=== PATIENT | male | born 1950 | race Hispanic/Latino ===

== ENCOUNTER 2018-10-08 16:07 | Inpatient (IN) | payer MEDICARE ==
[~2018-10-08] VITALS: Ht 162.6 cm; Wt 101.2 kg
--- OUTSIDE RECORDS SUMMARY | 2018-10-08 16:09 | XMS REPORT ---
Author Author Roberto Carlos Brown Organization [employer] Address Unknown Phone Unavailable Care Team Providers Care Registration Coordinator Name Role Phone Roberto Carlos Brown Unavailable Allergies, Adverse Reactions, Alerts Substance Reaction Event Type N.K.D.A. Info Not Available Non Drug Allergy Problems Problem Type Condition Code Onset Dates Condition Status Problem Presence of prosthetic heart valve Z95.2 Active Problem Non morbid obesity due to excess calories E66.09 Active Problem S/P AVR Z95.2 Active Problem History of bilateral carotid endarterectomy Z98.890 Active Assessment Non morbid obesity due to excess calories E66.09 Active Problem Type II or unspecified type diabetes mellitus with unspecified complication, not stated as uncontrolled E11.8 Active Problem Non-rheumatic mitral regurgitation I34.0 Active Problem Pure hypercholesterolemia E78.01 Active Problem History of bilateral carotid endarterectomy Z98.89 Active Problem Abnormal EKG R94.31 Active Problem CHEUNG (dyspnea on exertion) R06.09 Active Assessment Abnormal EKG R94.31 Active Assessment CHEUNG (dyspnea on exertion) R06.09 Active Assessment Pure hypercholesterolemia E78.01 Active Assessment Type II or unspecified type diabetes mellitus with unspecified complication, not stated as uncontrolled E11.8 Active Assessment Arteriosclerosis of both carotid arteries I65.23 Active Assessment S/P AVR Z95.2 Active Assessment Benign hypertensive heart disease without congestive heart failure I11.9 Active Problem Benign hypertensive heart disease without congestive heart failure I11.9 Active Assessment History of bilateral carotid endarterectomy Z98.89 Active Problem Arteriosclerosis of both carotid arteries I65.23 Active Medications Medication Code System Code Instructions Start Date End Date Status Dosage Atorvastatin Calcium [facility] 53379351589 40 MG Orally Once a day Active 1 tablet NovoLog [facility] 46596848797 100 UNIT/ML Subcutaneous 24 units in AM 28 at noon 34 in PM Active as directed Metoprolol Tartrate ND 27086576186 25 MG Orally once a day Active 1 tablet Aspirin EC Lo-Dose [facility] 08477170978 81 MG Orally Once a day Active 1 tablet Lisinopril-Hydrochlorothiazide [facility] 06695358687 20-25 MG Orally Once a day Active 1 tablet Metformin HCl [facility] 91514574647 1000 mg Orally Twice a day Active 1 tablet with meals Lantus [facility] 80869470443 100 UNIT/ML Subcutaneous 30units Fanny 50 at night Active 0.1 ml Vital Signs Date/Time: June 28, 2016 BMI 36.44 Index Weight 219 lbs Height 65 in Temperature 98.0 F Cardiac Monitoring Heart Rate 76 /min Blood Pressure Diastolic 70 mm Hg Blood Pressure Systolic 134 mm Hg Results No Known Results Summary Purpose eClinicalWorks Submission
--- OUTSIDE RECORDS SUMMARY | 2018-10-08 16:09 | XMS REPORT ---
Author Author Johann Brown Organization [employer] Address Unknown Phone Unavailable Care Team Providers Care Bundler Seasonal Greenery Name Role Phone Johann Brown CP Unavailable Allergies, Adverse Reactions, Alerts Substance Reaction [...] not stated as uncontrolled E11.8 Active Assessment History of bilateral carotid endarterectomy Z98.89 Active Assessment Arteriosclerosis of both carotid arteries I65.23 Active Assessment Benign hypertensive heart disease without congestive heart failure I11.9 Active Problem Benign hypertensive heart disease without congestive heart failure I11.9 Active Assessment S/P AVR Z95.2 Active Problem Arteriosclerosis of both carotid arteries I65.23 Active Medications Medication Code System Code Instructions Start Date End Date Status Dosage Lisinopril-Hydrochlorothiazide [facility] 97978084540 20-25 MG Orally Once a day Active 1 tablet NovoLog [facility] 40644133507 100 UNIT/ML Subcutaneous 24 units in AM 28 at noon 34 in PM Active as directed Aspirin EC Lo-Dose ND 91997298058 81 MG Orally Once a day Active 1 tablet Metoprolol Tartrate [facility] 18012990464 25 MG Orally once a day Active 1 tablet Atorvastatin Calcium [facility] 91534302909 40 MG Orally Once a day Active 1 tablet Lantus [facility] 71239705987 100 UNIT/ML Subcutaneous 30units Fanny 50 at night Active 0.1 ml Metformin HCl [facility] 16031312505 1000 mg Orally Twice a day Active 1 tablet with meals Vital Signs Date/Time: July 24, 2016 BMI 36.61 Index Weight 220 lbs Height 65 in Temperature 97.5 F Cardiac Monitoring Heart Rate 70 /min Blood Pressure Diastolic 82 mm Hg Blood Pressure Systolic 142 mm Hg Results No Known Results Summary Purpose eClinicalWorks Submission
--- OUTSIDE RECORDS SUMMARY | 2018-10-08 16:09 | XMS REPORT ---
Author Author Johann Brown Organization [employer] Address Unknown Phone Unavailable Care Team Providers Care Spider Assembler Name Role Phone Johann Brown CP Unavailable [...] Instructions Start Date End Date Status Dosage Metformin HCl [facility] 92548587073 1000 mg Orally Twice a day Active 1 tablet with meals Lantus [facility] 84826098182 100 UNIT/ML Subcutaneous 30units Fanny 50 at night Active 0.1 ml Atorvastatin Calcium ND 55893919199 40 MG Orally Once a day Active 1 tablet Lisinopril-Hydrochlorothiazide ND 16876149772 20-25 MG Orally Once a day Active 1 tablet Metoprolol Tartrate [facility] [address]-43 25 MG Orally twice a day (bid) Active 1 tablet NovoLog [facility] 25666981379 100 UNIT/ML Subcutaneous 24 units in AM 28 at noon 34 in PM Active as directed Aspirin EC Lo-Dose [facility] 11625691802 81 MG Orally Once a day Active 1 tablet Vital Signs Date/Time: Jan 24, 2017 BMI 36.27 Index Weight 218 lbs Height 65 in Temperature 98.3 F Cardiac Monitoring Heart Rate 60 /min Blood Pressure Diastolic 78 mm Hg Blood Pressure Systolic 132 mm Hg Results No Known Results Summary Purpose [employer]ClinicalWorks Submission
--- OUTSIDE RECORDS SUMMARY | 2018-10-08 16:09 | XMS REPORT | Continuity of Care Document ---
Author Author [facility] Interface Address Unknown Phone Unavailable Problems Problem Status Onset Date Classification Date Reported Comments Source Presence of prosthetic heart valve Active Problem 01/22/2018 Johann Brown Non morbid obesity due to excess calories Active Problem 01/22/2018 Johann Brown S/P AVR Active Problem 01/22/2018 Johann Brown History of bilateral carotid endarterectomy Active Problem 01/22/2018 Johann Brown Type II or unspecified type diabetes mellitus with unspecified complication, not stated as uncontrolled Active Problem 01/22/2018 Johann Brown Non-rheumatic mitral regurgitation Active Problem 01/22/2018 Johann Brown Pure hypercholesterolemia Active Problem 01/22/2018 Johann Brown History of bilateral carotid endarterectomy Active Problem 01/22/2018 Johann Brown Abnormal EKG Active Problem 01/22/2018 Johann Brown CHEUNG Active Problem 01/22/2018 Johann Brown Arteriosclerosis of both carotid arteries Active Diagnosis 01/22/2018 Johann Brown Benign hypertensive heart disease without congestive heart failure Active Diagnosis 01/22/2018 Johann Brown Abnormal EKG Active Problem 02/03/2014 Johann Brown HTN, Benign Active Problem 02/03/2014 Johann Brown Carotid Bruit Active Problem 02/03/2014 Johann Brown Diabetes with unspecified complication, type II or unspecified type, not stated as uncontrolled Active Problem 02/03/2014 Johann Brown Benign hypertensive heart disease Active Problem 02/03/2014 Johann Brown S/P AVR Active Problem 02/03/2014 Johann Brown H/O carotid endarterectomy Active Problem 02/03/2014 Johann Brown CHEUNG Active Problem 02/03/2014 Johann Brown Occlusion and stenosis of carotid artery without mention of cerebral infarction Active Problem 02/03/2014 Johann Brown Severe aortic stenosis Active Problem 02/03/2014 Johann Brown Angina pectoris Active Problem 02/03/2014 Johann Brown Medications Medication Details Route Status Patient Instructions Ordering Provider Order Date Source Furosemide 1 tablet Orally Active 20 mg Orally Once a day [facility] 11/19/2013 Johann Brown Metoprolol Tartrate 1 tablet Orally Active 25 MG Orally once a day [facility] 09/30/2013 Johann Brown Lisinopril-Hydrochlorothiazide 1 tablet Orally Active 20-25 MG Orally Once a day [facility] Johann Brown NovoLog as directed Subcutaneous Active 100 UNIT/ML Subcutaneous 24 units in AM 28 at noon 34 in PM [facility] Johann Brown Aspirin EC Lo-Dose 1 tablet Orally Active 81 MG Orally Once a day [facility] Johann Brown Metoprolol Tartrate 1 tablet Orally Active 25 MG Orally once a day [facility] Johann Brown Atorvastatin Calcium 1 tablet Orally Active 40 MG Orally Once a day [facility] Johann Brown Lantus 0.1 ml Subcutaneous Active 100 UNIT/ML Subcutaneous 30units Fanny 50 at night [facility] Johann Brown Metformin HCl 1 tablet with meals Orally Active 1000 mg Orally Twice a day [facility] Johann Brown Metoprolol Tartrate 1 tablet Orally Active 25 MG Orally twice a day (bid) [facility] Johann Brown Lisinopril 1 tablet Orally Active 20 mg Orally twice a day (bid) [facility] Johann Brown Aspirin EC Lo-Dose 1 tablet Orally Active 81 MG Orally Once a day [facility] Johann Brown Atorvastatin Calcium 1 tablet Orally Active 40 MG Orally Once a day [facility] Johann Brown NovoLog as directed Subcutaneous Active 100 UNIT/ML Subcutaneous 24 units in AM 28 at noon 34 in PM [facility] Iselaenrique Jennifer Brown Jentadueto 1 tablet with meals Orally Active 2.5-1000 MG Orally Twice a day [facility] Johann Brown Lantus 0.1 ml Subcutaneous Active 30 mg Subcutaneous 30units Fanny 50 at night [facility] Johann Brown Allergies, Adverse Reactions, Alerts Substance Category Reaction Severity Reaction type Status Date Reported Comments Source N.K.D.A. Adverse Reaction Info Not Available Adverse Reaction Active 01/24/2017 Mohamed O Jeroudi Immunizations Immunization Date Given Site Status Last Updated Comments Source Results Order Name Results Value Reference Range Date Interpretation Comments Source Vital Signs Vital Sign Value Date Comments Source Weight 218 01/24/2017 Mohamed O Celestinodi Height 65 01/24/2017 Mohamed O Jeroudi Temperature Oral (F) 98.3 F 01/24/2017 Mohamed O Jeroudi Heart Rate 60 01/24/2017 Mohamed O Jeroudi Diastolic (mm Hg) 78 01/24/2017 Mohamed O Jeroudi Systolic (mm Hg) 132 01/24/2017 Mohamed O Jeroudi Weight 220 07/24/2016 Mohamed O Jeroudi Height 65 07/24/2016 Mohamed O Jeroudi Temperature Oral (F) 97.5 F 07/24/2016 Mohamed O Jeroudi Heart Rate 70 07/24/2016 Mohamed O Jeroudi Diastolic (mm Hg) 82 07/24/2016 Mohamed O Jeroudi Systolic (mm Hg) 142 07/24/2016 Mohamed O Jeroudi Weight 219 06/28/2016 Mohamed O Mikioudi Height 65 06/28/2016 Mohamed O Jeroudi Temperature Oral (F) 98.0 F 06/28/2016 Mohamed O Jeroudi Heart Rate 76 06/28/2016 Mohamed O Jeroudi Diastolic (mm Hg) 70 06/28/2016 Mohamed O Jeroudi Systolic (mm Hg) 134 06/28/2016 Mohamed O Jeroudi Weight 219 11/19/2013 Mohamed O Mikioudi Height 65 11/19/2013 Mohamed O Jeroudi Temperature Oral (F) 97.5 F 11/19/2013 Mohamed O Jeroudi Heart Rate 92 11/19/2013 Mohamed O Jeroudi Diastolic (mm Hg) 60 11/19/2013 Mohamed O Jeroudi Systolic (mm Hg) 145 11/19/2013 Mohamed O Jeroudi Encounters Location Location Details Encounter Type Encounter Number Reason For Visit Attending Provider ADM Date DC Date Status Source MD EMILY Crawley f/u [id number] 11/19/2013 11/19/2013 MD EMILY Mares f/u [id number] 11/19/2013 11/19/2013 MD EMILY Mares f/u [id number] 11/19/2013 11/19/2013 MD EMILY Mares Unknown [id number] 12/14/2013 12/14/2013 MD EMILY Mares Unknown [id number] 12/14/2013 12/14/2013 MD EMILY Mares Unknown [id number] 01/22/2014 01/22/2014 Johann Brown Procedures Procedure Code Date Perfomer Comments Source
--- OUTSIDE RECORDS SUMMARY | 2018-10-08 16:10 | XMS REPORT ---
Author Author Johann Brown Organization [employer] Address Unknown Phone Unavailable Care Team Providers Care Oyster Sorter Name Role Phone Johann Brown CP Unavailable Allergies, Adverse Reactions, Alerts Substance Reaction Event Type N.K.D.A. Info Not Available Non Drug Allergy Encounters Encounter Location Date f/u Johann Brown [place] November 19, 2013 Problems Problem Type Condition ICD-9 Code Onset Dates Condition Status Problem Abnormal EKG 794.31 Active Problem HTN, Benign 401.1 Active Problem Carotid Bruit 785.9 Active Problem Benign hypertensive heart disease 402.10 Active Problem S/P AVR V43.3 Active Problem H/O carotid endarterectomy V45.89 Active Problem CHEUNG (dyspnea on exertion) 786.09 Active Problem Occlusion and stenosis of carotid artery without mention of cerebral infarction 433.10 Active Problem Severe aortic stenosis 424.1 Active Problem Angina pectoris 413.9 Active Assessment H/O carotid endarterectomy V45.89 Active Assessment Diabetes with unspecified complication, type II or unspecified type, not stated as uncontrolled 250.90 Active Assessment CHEUNG (dyspnea on exertion) 786.09 Active Assessment S/P AVR V43.3 Active Assessment Occlusion and stenosis of carotid artery without mention of cerebral infarction 433.10 Active Assessment Benign hypertensive heart disease 402.10 Active Assessment Abnormal EKG 794.31 Active Problem Diabetes with unspecified complication, type II or unspecified type, not stated as uncontrolled 250.90 Active Medications Medication Code System Code Instructions Start Date End Date Status Dosage [facility] [address]-75 20 mg Orally twice a day (bid) Active 1 tablet Aspirin EC Lo-Dose [facility] [address]-41 81 MG Orally Once a day Active 1 tablet Atorvastatin Calcium [facility] [address]-88 40 MG Orally Once a day Active 1 tablet [facility]Log [facility] [address]-77 100 UNIT/ML Subcutaneous 24 units in AM 28 at noon 34 in PM Active as directed Metoprolol Tartrate [facility] [address]-82 25 MG Orally Twice a day September 30, 2013 Active 1 tablet Furosemide [facility] [address]-15 20 mg Orally Once a day November 19, 2013 Active 1 tablet Jentadueto [facility] [address]-17 2.5-1000 MG Orally Twice a day Active 1 tablet with meals Lantus [facility] [address]-23 30 mg Subcutaneous 30units Fanny 50 at night Active 0.1 ml Social History Social History Element Qualifiers Date Reported Smoking . Status Never Smoker November 19, 2013 Alcohol Use No. November 19, 2013 Alcohol Screening: No. Did you have a drink containing alcohol in the past year?: No, Points: 0, Interpretation: Negative November 19, 2013 Marital Status: . November 19, 2013 Do you drink alcohol? No. 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 PE November 19, 2013 Vital Signs Date/Time: November 19, 2013 Weight 219 lbs Height 65 in Temperature 97.5 F Cardiac Monitoring Heart Rate 92 /min Blood Pressure Diastolic 60 mm Hg Blood Pressure Systolic 145 mm Hg Summary Purpose eClinicalWorks Submission
--- OUTSIDE RECORDS SUMMARY | 2018-10-08 16:10 | XMS REPORT ---
Author Author Johann Brown Organization [employer] Address Unknown Phone Unavailable Care Team Providers Care Pattern Drum Maker Name Role Phone Johann Brown Unavailable Encounters Encounter Location Date f/u Johann Brown MD [place] November 19, 2013 Unknown Johann Brown MD [place] Dec 14, 2013 Problems Problem Type Condition ICD-9 Code Onset Dates Condition Status Problem Abnormal EKG 794.31 Active Problem HTN, Benign 401.1 Active Problem Carotid Bruit 785.9 Active Problem Diabetes with unspecified complication, type II or unspecified type, not stated as uncontrolled 250.90 Active Problem Benign hypertensive heart disease 402.10 Active Problem S/P AVR V43.3 Active Problem H/O carotid endarterectomy V45.89 Active Problem CHEUNG (dyspnea on exertion) 786.09 Active Problem Occlusion and stenosis of carotid artery without mention of cerebral infarction 433.10 Active Problem Severe aortic stenosis 424.1 Active Problem Angina pectoris 413.9 Active Medications Medication Code System Code Instructions Start Date End Date Status Dosage [facility] [address]-39 25 MG Orally Twice a day September 30, 2013 Active 1 tablet Social History Social History Element Qualifiers Date Reported Smoking . Status Never Smoker November 19, 2013 Alcohol Use No. November 19, 2013 Alcohol Screening: No. Did you have a drink containing alcohol in the past year?: No, Points: 0, Interpretation: Negative November 19, 2013 Marital Status: . November 19, 2013 Do you drink alcohol? No. 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
--- OUTSIDE RECORDS SUMMARY | 2018-10-08 16:10 | XMS REPORT ---
Author Author Johann Brown Organization e[employer]Works Address Unknown Phone Unavailable Care Team Providers Care Supervisor Aluminum Boat [employer] Name Role Phone Johann Brown Unavailable Encounters Encounter Location Date f/u Johann Brown MD [place] November 19, 2013 Unknown Johann Brown MD [place] Dec 14, 2013 Unknown Johann Brown MD [place] Jan 22, 2014 Problems Problem Type Condition ICD-9 Code Onset [...] Date End Date Status Dos[facility] [address]-74 25 MG Orally once a day September 30, 2013 Active 1 tablet Social History Social History Element Qualifiers Date Reported Smoking . Status Never Smoker Jan 13, 2014 Alcohol Use No. Jan 13, 2014 Alcohol Screening: No. Did you have a drink containing alcohol in the past year?: No, Points: 0, Interpretation: Negative Jan 13, 2014 Marital Status: . Jan 13, 2014 Do you drink alcohol? No. 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
--- OUTSIDE RECORDS SUMMARY | 2018-10-08 16:10 | XMS REPORT ---
[facility] Address Unknown Phone Unavailable Care Team Providers Care Unit Trust Manager Name Role Phone Unavailable Unavailable Payers Payer Name Policy Type Policy Number Effective Date Expiration Date Problems This patient has no known problems. Allergies, Adverse Reactions, Alerts Allergy Name Allergy Type Status Severity Reaction(s) Onset Date Inactive Date Treating Clinician Comments No Known Allergies DA Active U 2013-08-21 00:00:00 Medications This patient has no known medications. Results Test Description Test Time Test Comments Text Results Atomic Results Result Comments - XR CHEST 2 V 2018-10-02 13:20:00 FAX: Johann Baumann [phone] [place]: O St: REG Name: MIKE BUENO [facility] : 1950 Age/S: 67/M [address] Unit #: [id number] Loc: [place] [address] Phys: Johann Brown MD Acct: [id number] Dis Date: Status: REG CLI PHONE #: [phone] Exam Date: 10/02/2018 1255 FAX #: [phone] Reason: R06.02 EXAMS: CPT CODE: [id number] XR CHEST 2 V 53491 HISTORY: R06.02 COMPARISON: August 31, 2013. No acute infiltrates, effusion or congestion. Scarring and dependent changes. Cardiomegaly. DJD of the dorsal spine. IMPRESSION: No acute infiltrates, effusion or congestion. Basal dependent changes and scarring. at 1320 Reported and signed by: Lucian Serna M.D. CC: Johann Brown MD Technologist: Taylor DEL RIO(R) Trnscrd Date/Time/By: 10/02/2018 (0390) : By: [email or web address] Orig Print D/T: S: 10/02/2018 (3498) PAGE 1 Signed Report
[2018-10-08] MEDS ORDERED: ASPIRIN 81 MG CHEW TAB PO ONE (16:45)
[2018-10-08 16:53] LABS: BASOPHILS % 0.3 % (0.0-1.0); EOSINOPHILS # (AUTO) 0.1 (0.0-0.4); EOSINOPHILS % 1.8 % (0.0-6.0); HEMATOCRIT 34.9 % (38.2-49.6); HEMOGLOBIN 11.7 g/dL (14.0-18.0); LYMPHOCYTES # (AUTO) 1.2 (1.0-3.2); LYMPHOCYTES % 17.4 % (18.0-39.1); MEAN CORPUSCULAR HEMOGLOBIN 30.7 pg (28-32); MEAN CORPUSCULAR HGB CONC 33.5 g/dL (31-35); MEAN CORPUSCULAR VOLUME 91.6 fL (81-99); MONOCYTES # (AUTO) 0.5 (0.2-0.8); NEUTROPHILS # (AUTO) 4.9 (2.1-6.9); NEUTROPHILS % 72.2 % (38.7-80.0); PLATELET COUNT 206 x10e3/uL (140-360); RED BLOOD COUNT 3.81 x10e6/uL (4.3-5.7); RED CELL DISTRIBUTION WIDTH 14.4 % (11.7-14.4)
[2018-10-08 17:05] LABS: INR 0.94; PROTHROMBIN TIME 13.1 seconds (11.9-14.5)
[2018-10-08 17:06] LABS: PARTIAL THROMBOPLASTIN TIME 27.9 seconds (23.8-35.5)
[2018-10-08 17:14] LABS: ALANINE AMINOTRANSFERASE 52 IU/L (0-55); ALBUMIN 3.8 g/dL (3.5-5.0); ALBUMIN/GLOBULIN RATIO 1.3 (0.8-2.0); ALKALINE PHOSPHATASE 66 IU/L (40-150); ANION GAP 10.9 mmol/L (8-16); BILIRUBIN,URINE NEGATIVE (NEGATIVE); BLOOD UREA NITROGEN 12 mg/dL (7-26); BUN/CREATININE RATIO 16 (6-25); CALCIUM 10.2 mg/dL (8.4-10.2); CARBON DIOXIDE 30 mmol/L (22-29); CHLORIDE 98 mmol/L (98-107); CLARITY,URINE CLEAR (CLEAR); COLOR,URINE YELLOW (YELLOW); CREATINE KINASE 909 IU/L (30-200); CREATININE, SERUM 0.74 mg/dL (0.72-1.25); EST GLOMERULAR FILTRATION RATE > 60 ML/MIN (60-); GLUCOSE 104 mg/dL (74-118); KETONES,URINE NEGATIVE (NEGATIVE); LEUKOCYTE ESTERASE ,URINE NEGATIVE (NEGATIVE); NITRITE,URINE NEGATIVE (NEGATIVE); POTASSIUM 3.9 mmol/L (3.5-5.1); PROTEIN,URINE DIPSTICK NEGATIVE (NEGATIVE); SODIUM 135 mmol/L (136-145); URINE UROBILINOGEN 0.2 mg/dL (0.2 - 1)
--- NOTE | 2018-10-08 18:50 | NUR ---
RADIOLOGY AT BEDSIDE FOR CXR AT THIS TIME.
--- NOTE | 2018-10-08 19:10 | Diagnostic Imaging Report ---
A single frontal view of the chest. HISTORY: Dyspnea, shortness of breath COMPARISON: None available. DISCUSSION: Portable technique, limits sensitivity of the exam. Soft tissue attenuation partially limits sensitivity of the exam. Overlying monitoring leads. Tubes/Lines: None Lungs and pleura: Diffusely increased interstitial markings with mild patchy areas of more confluent opacity. The left hemidiaphragm is obscured. Heart and mediastinum: The central pulmonary vasculature appears prominent. Given the projection, the cardiac silhouette is partially obscured. Bones and soft tissues: Multiple median sternotomy wires. IMPRESSION: 1. Findings which can be seen in the setting of central pulmonary vascular congestion, moderate pulmonary edema, small to moderate left pleural effusion, and adjacent left basilar atelectasis. 2. Recommend short term follow up routine PA and lateral chest radiographs, in 6-8 weeks, to evaluate for resolution. Signed by: Dr. Kalia Dixon D.O., M.M.M. on 10/08/2018 7:07 PM
[2018-10-08] MEDS: FUROSEMIDE INJ 10 MG/ML 4 ML VIAL IV SCH (20:50)
[2018-10-08 21:30] VITALS: BP 141/66
--- NOTE | 2018-10-08 21:30 | NUR ---
PATIENT IS A NEW ADMIT THAT ARRIVED VIA WHEELCHAIR. PATIENT IS ALERT AND ORIENTED. DENIES PAIN OR DISCOMFORT. PATIENT IS ON O2 VIA NASAL CANNULA. PATIENT HAS BEEN ASSISTED INTO THE BED. BED IS IN LOWEST POSITION AND CALL DUNN IS WITHIN REACH. WILL CONTINUE TO MONITOR PATIENT.
[2018-10-08 21:35] VITALS: BP 141/66
[2018-10-08] MEDS ORDERED: ASPIRIN CHEW81 MG PO (22:42)
[2018-10-08] MEDS ORDERED: NOVOLIN R100 UNIT/1 SC (22:42)
[2018-10-08] MEDS ORDERED: METOPROLOL TART25 MG PO (22:42)
[2018-10-08] MEDS ORDERED: LISINOPRIL10 MG PO (22:42)
[2018-10-08] MEDS ORDERED: NOVOLIN N100 UNIT/1 SC (22:42)
[2018-10-08] MEDS ORDERED: ATORVASTATIN CA20 MG PO (22:42)
[2018-10-08] MEDS ORDERED: METFORMIN HCL500 MG PO (22:42)
[2018-10-09] VITALS: BP 139/75
[2018-10-09 01:08] LABS: CREATINE KINASE MB 11.1 ng/mL (0-5.0)
[2018-10-09 05:52] LABS: BASOPHILS % 0.3 % (0.0-1.0); EOSINOPHILS # (AUTO) 0.1 (0.0-0.4); EOSINOPHILS % 1.9 % (0.0-6.0); HEMATOCRIT 37.2 % (38.2-49.6); HEMOGLOBIN 11.7 g/dL (14.0-18.0); LYMPHOCYTES % 13.6 % (18.0-39.1); MEAN CORPUSCULAR HEMOGLOBIN 30.2 pg (28-32); MEAN CORPUSCULAR HGB CONC 31.5 g/dL (31-35); MEAN CORPUSCULAR VOLUME 95.9 fL (81-99); MONOCYTES # (AUTO) 0.6 (0.2-0.8); MONOCYTES % 8.9 % (4.4-11.3); NEUTROPHILS # (AUTO) 5.2 (2.1-6.9); NEUTROPHILS % 74.9 % (38.7-80.0); PLATELET COUNT 177 x10e3/uL (140-360); RED BLOOD COUNT 3.88 x10e6/uL (4.3-5.7); RED CELL DISTRIBUTION WIDTH 14.5 % (11.7-14.4)
[2018-10-09 06:10] LABS: CREATINE KINASE MB 10.1 ng/mL (0-5.0)
[2018-10-09 06:50] LABS: ALANINE AMINOTRANSFERASE 53 IU/L (0-55); ALBUMIN 3.8 g/dL (3.5-5.0); ALBUMIN/GLOBULIN RATIO 1.3 (0.8-2.0); ALKALINE PHOSPHATASE 74 IU/L (40-150); ANION GAP 10.5 mmol/L (8-16); BLOOD UREA NITROGEN 13 mg/dL (7-26); BUN/CREATININE RATIO 16 (6-25); CALCIUM 9.9 mg/dL (8.4-10.2); CARBON DIOXIDE 35 mmol/L (22-29); CHLORIDE 96 mmol/L (98-107); CREATININE, SERUM 0.82 mg/dL (0.72-1.25); EST GLOMERULAR FILTRATION RATE > 60 ML/MIN (60-); GLUCOSE 165 mg/dL (74-118); POTASSIUM 4.5 mmol/L (3.5-5.1); SODIUM 137 mmol/L (136-145)
--- NOTE | 2018-10-09 07:03 | NUR ---
report given to day nurse. patient is resting comfortably in bed. bed is in lowest position and call macias is within reach.
[2018-10-09 07:17] VITALS: BP 141/65
[2018-10-09] MEDS: FUROSEMIDE INJ 10 MG/ML 4 ML VIAL IV SCH (08:11)
--- NOTE | 2018-10-09 08:20 | NUR ---
PATIENT STATED THAT HE HAS AN APPOINTMENT TODAY WITH DR. JOSHI, HE CALLED DR. JOSHI'S OFFICE, PATIENT STATED THAT THEY TOLD HIM TO TELL HIS NURSE AND ASK THE NURSE TO NOTIFY DR. JOSHI, CALLED DR. JOSHI'S ANSWERING SERVICE, REPORTED TO ANSWERING SERVICE TO PLEASE NOTIFY DR. JOSHI THAT PATIENT IS PRESENTLY AT [facility] FOR MEDICAL TREATMENT AND DR. JOSHI CAN VISIT HIM WHILE HE IS HERE, CORN BREEDER STATED THAT SHE WILL NOTIFY DR. JOSHI.
[2018-10-09 08:23] VITALS: BP 141/65
[2018-10-09 11:08] LABS: ABG HCO3 32 mmol/L (23-28); ABG PCO2 42 mmHg (41-51); ABG PH 7.49 (7.31-7.41); ABG PO2 70 mmHg (80-105)
[2018-10-09 11:14] VITALS: BP 159/71
[2018-10-09] MEDS ORDERED: ACETAZOLAMIDE SODIUM 500 MG/VIAL IV ONE ×2 (11:30→13:00)
[2018-10-09] MEDS ORDERED: DEXTROSE 50% SYRINGE 50 ML IV PRN ×4 (12:00→16:15)
--- NOTE | 2018-10-09 14:05 | NUR ---
Nutrition Screen Note RD Recommendation for Physician: -Rec adding ADA 1800 to cardiac diet as medically appropriate Plan of Care: RD following, monitoring for tolerance and adequacy Nutrition reason for involvement: Nutrition Risk Trigger MST Primary Diagnose(s): CHF, dyspnea, pulmonary vascular congestion PMH: DM, CHF Ht: 64in Wt: 230lb BMI: 39.5kg/m2 IBW: 130lb RD Assessment: (10/09/2018) Chart reviewed. Labs and meds reviewed. 67yo M, who was admitted for CHF. Currently on Lasix. Visited pt in the room. Pt reported good appetite. No complains of nausea or vomiting. LBM 10/09. Pt denied any chewing or swallowing difficulty. Pt also reported 10lbs of weight gain from fluids retention in the last [address] offered diet education but pt was not interested. Will continue to monitor and follow. Current Diet: cardiac diet Malnutrition Evaluation (10/09/2018) The patient does not meet criteria for a specified degree of malnutrition at this time. Will re-evaluate at follow-up as appropriate. Diet Education Needs Assessment: Diet education indicated, pt was not interested. Pt stated I follow up with my diabetes doctor for diet and weight management. I know what I need to do. Nutrition Care Level: low Signed: Kriss Jessica, MS, RD, LD
[2018-10-09 14:29] LABS: CREATINE KINASE MB 9.3 ng/mL (0-5.0)
[2018-10-09] MEDS: METOPROLOL TARTRATE 25 MG TAB PO SCH (14:41)
--- NOTE | 2018-10-09 14:46 | Consultation ---
DATE OF CONSULTATION: 10/09/2018 Pulmonary Consultation REASON FOR THE CONSULT: Shortness of breath. HISTORY OF PRESENT ILLNESS: Mr. Clement is a 67-year-old male, who is morbidly obese, has a history of aortic stenosis. The patient underwent valve replacement in 2013. He presented to the emergency room with shortness of breath. The patient also has history of obstructive sleep apnea and his machine broke a month ago. He has been trying to get a sleep study; however, the insurance declined it and he is sleeping without his CPAP machine. He also has history of carotid endarterectomy in the past and some sort of neck surgery, which he does not remember in the past as well. He is a lifelong nonsmoker. He is retired. REVIEW OF SYSTEMS: GENERAL: Denies any fever or chills. HEAD: Denies any head trauma. ENT: Denies any earaches. CVS: Denies any chest pain. RESPIRATORY: Shortness of breath. GI: Denies any nausea or vomiting. The rest of the review of systems are negative except as in HPI. PAST MEDICAL HISTORY: Hypertension, obesity, aortic stenosis, obstructive sleep apnea. PAST SURGICAL HISTORY: Endarterectomy and aortic valve replacement. FAMILY AND SOCIAL HISTORY: He does not smoke, does not drink. PHYSICAL EXAMINATION: VITAL SIGNS: Temperature 98.4, pulse of 77, blood pressure 141/65, respiratory rate is 18 to 20, and O2 saturation 97%. HEENT: Head is atraumatic, normocephalic. Oral mucosa is dry. The patient's airway is Mallampati 3-4. NECK: The patient has possibly contracture in the neck as well. CHEST: Markedly reduced air entry bilaterally. HEART: S1, S2 audible. ABDOMEN: Soft, nontender. EXTREMITIES: Trace pedal edema. NEUROLOGIC: He is awake, alert, following commands, responds to questions appropriately. LABORATORY DATA: White count of 6000, hemoglobin 11.7, platelets 177. Chemistry; sodium 137, potassium 4.5, chloride 96, BUN 13, creatinine 0.82. CK-MB 11, creatine kinase 708. Chest x-ray reviewed, the images showing bilateral alveolar infiltrate and congestion, large pulmonary artery, small pleural effusion. Bicarb 35. ASSESSMENT: Mr. Clement is a 67-year-old male, obese, history of hypertension, aortic valve replacement, history of aortic stenosis. Currently, chest x-ray suggestive of heart failure, likely has right-sided node dysfunction as well. Previous echo as discussed with Dr. Brown was not able to measure the TR jet and hence the RVSP was not measured. Bicarbonate of 35 suggests chronic respiratory acidosis. RECOMMENDATIONS: 1. I will start the patient on BiPAP to be used during hours of sleep here which will help in mechanical diuresis as well. 2. Increase the dose of Lasix to 60 mg IV daily. 3. I will give a dose of Diamox. 4. Oxygen as needed to keep the O2 sat more than or equal to 92%. 5. Lovenox subcu for DVT prophylaxis. We will follow the echo results. Thank you for this consult. MD ERA Coy/LEVY /[id number]
[2018-10-09 15:29] VITALS: BP 153/68
--- NOTE | 2018-10-09 15:41 | History and Physical ---
CHIEF COMPLAINT: Shortness of breath, pulmonary and lower extremity edema. HISTORY OF PRESENT ILLNESS: This is a 67-year-old male, morbidly obese with multiple comorbidities, of note type 2 diabetes, hyperlipidemia, hypertension, who is very noncompliant with his medical care. He does follow up with an power plant inspector and vice president. He presented to the ED with complaints of shortness of breath and lower extremity edema ongoing for the last several days. The patient reports he does not take any diuretics at home. He reports worsening orthopnea and dyspnea on exertion. Cardiology and Pulmonary were consulted. He apparently has a CPAP at home, but it is nonfunctional. REVIEW OF SYSTEMS: Pertinent positives: Orthopnea, dyspnea on exertion, shortness of breath. Pertinent negatives: Denies any chest pain, palpitation, nausea, vomiting, diarrhea, dysuria, hematuria, frequency, urgency, lightheadedness, dizziness, abdominal pain, headaches, cough, congestion, fever, or any other complaints. The rest of the 14-point review of systems have been reviewed with the patient and are negative. ALLERGIES: NO KNOWN DRUG ALLERGIES. HOME MEDICATIONS: 1. Aspirin 81 mg daily. 2. Lipitor 20 mg daily. 3. Novolin R 30 units subcu t.i.d. with meals. 4. Lisinopril 20 mg p.o. b.i.d. 5. Metformin 1000 mg p.o. b.i.d. 6. Metoprolol 20 mg daily. 7. NPH 30 units subcu t.i.d. with meals. PAST MEDICAL HISTORY: Type 2 diabetes, morbidly obese, hypertension, history of CAD. PAST SURGICAL HISTORY: Reports none. FAMILY HISTORY: Hypertension and diabetes. SOCIAL HISTORY: No drugs, no alcohol, does not smoke. Good social support. He is . PHYSICAL EXAMINATION: VITAL SIGNS: Temperature 97.9, pulse 73, respiratory rate is 18, blood pressure 159/71, pulse ox is 94% on room air. GENERAL: Not in acute distress. Alert and oriented x3. Cooperative on examination. HEENT: Head is normocephalic and atraumatic. Eyes; pupils are equal, round, and reactive to light bilaterally. Extraocular movements are intact bilaterally. Throat, no evidence of erythema or exudates in the posterior pharynx. Has poor dentition. NECK: Supple. Good range of motion. PULMONARY: Clear to auscultation bilaterally. No wheezing, no rales, no rhonchi, no crackles appreciated. CARDIOVASCULAR: Positive S1 and S2. No murmurs, rubs, or gallops appreciated. ABDOMEN: Soft, nondistended, and nontender to palpation. Bowel sounds present. MUSCULOSKELETAL: Strength is 5/5 throughout. No evidence of any muscle deficits on examination. No weakness appreciated. NEUROLOGICAL: Cranial nerves 2 through 12 grossly intact. No evidence of any neurological deficits on exam. SKIN: Intact. Warm to touch. Good cap refill. PSYCHIATRIC: Normal affect and mood. EXTREMITIES: No edema. Good range of motion throughout. LAB FINDINGS: Show white count 6.9, hemoglobin 11.7, hematocrit 37 platelets of 177. Coagulation; PT 13, INR 0.9, PTT 27.9. Chemistry; sodium 137, potassium 4.5, chloride 96, bicarbonate 35, anion gap of 10, BUN 13, creatinine 0.82, glucose 165, calcium 9.9. Total bilirubin is 0.9, AST 36, ALT 53, alkaline phosphatase 74. Troponins were negative. Albumin 3.8. Urinalysis was negative. MICROBIOLOGY: Blood cultures are pending. IMAGING: Chest x-ray shows some evidence of central pulmonary vascular congestion, moderate pulmonary edema, small to moderate left pulmonary effusion, and adjacent left basilar atelectasis. IMPRESSION: 1. Shortness of breath, likely secondary to underlying pulmonary edema, possibly due to underlying heart failure. 2. History of obstructive sleep apnea. 3. History of coronary artery disease. 4. Hypertension. 5. Type 2 diabetes. PLAN: At this time, his orthopnea and dyspnea on exertion is secondary to pulmonary edema. He does have a history of CAD in which Cardiology was consulted. IV Lasix daily has been ordered. Continue with cardioprotective medications. We did consult with Pulmonary as the patient apparently has a CPAP machine that is nonfunctional at home and also will help us with the shortness of breath that the patient is currently having with also pleural effusions. We are going to continue with his Lantus in the evening time, insulin sliding scale. Resume same antihypertensive medications. Continue with Lovenox for DVT prophylaxis and get a.m. labs. Otherwise, we will monitor him very closely and follow recommendations from the consultants. MD CLINTON Graham/LEVY /[id number]
[2018-10-09] MEDS ORDERED: INSULIN LISPRO 100 UNIT/1 ML 3ML VIAL SQ SCH (16:30)
--- NOTE | 2018-10-09 16:58 | Consultation ---
DATE OF CONSULTATION: 10/09/2018 Cardiac Consultation REASON FOR CONSULTATION: Congestive heart failure like symptoms. HISTORY: A 67-year-old gentleman, who is very well known to me. He had aortic valve replacement bioprosthetic in 2013. He had also bilateral carotid endarterectomy in 2013. In addition to that, he does have hypertension, hypercholesteremia, obesity, diabetes mellitus, and peripheral neuropathy. The patient seen and evaluated in our office, having progressive worsening shortness of breath. His echocardiogram in February 2018 showing only mean gradient of 14, with normal valve velocity, however, it was very difficult study. There was no suggest of TR to estimate pulmonary artery pressure. The patient continued to have worsening shortness of breath. He came to our office for evaluation, we will send him for chest x-ray. Pulmonary function tests were done on October 02. The report showed FEV1 of 72% with no significant obstructive or restrictive lung disease. He continued to have worsening shortness of breath. He was seen by Dr. Vega. He had a chest x-ray showing left pleural effusion. He was advised to come for an admission. He came to be admitted. He has also gained almost 10 pounds. His activity is becoming more limited because of the shortness of breath and leg swelling. Of note, his CK total was mildly elevated. Troponins are normal. BNP of only 173. Chest x-ray showing increased lung markings, small pleural effusion. There is no history of fever or chills. CURRENT MEDICATIONS: 1. Aspirin 81 mg a day. 2. Lipitor 40 mg a day. 3. Metoprolol 25 mg a day. 4. Lisinopril/hydrochlorothiazide 20/25 one tablet a day. 5. Lantus 30 units in the morning, 50 units at night. 6. Metformin 1000 mg twice a day. 7. NovoLog sliding scale. ALLERGIES: NONE. PAST MEDICAL HISTORY: 1. Aortic valve replacement on July 17, 2013. 2. Bilateral carotid endarterectomy in 2012 and 2013. 3. Latest cardiac catheterization showed minimal plaquing of his coronary. 4. Hypertension. 5. Diabetes mellitus end-organ damage. 6. Sleep apnea. 7. Hypercholesteremia. 8. Peripheral neuropathy. 9. Left knee replacement in 2011. 10. Bilateral carotid endarterectomy. SOCIAL HISTORY: He is . He has never smoked. He does not drink alcohol. He is retired. 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 FAMILY HISTORY: Father at age 72 with diabetes mellitus after surgery, possible pulmonary embolism. Mother in the age 60s. She was diabetic, coma. Five siblings, one of the brother with hypertension. REVIEW OF SYSTEMS: GENERAL: No fever. No chills. Weight gain. HEENT: Congestion. CARDIAC/PULMONARY: Progressive worsening shortness of breath, sleep apnea, and leg edema. GASTROINTESTINAL: Chronic constipation. No melena. HEMATOLOGY: Easy bruising, but no bleeding. GENITOURINARY: No hematuria. No dysuria. MUSCULOSKELETAL: No back pain, degenerative joint disease. Peripheral vascular edema. NEUROLOGICAL: Good memory. Good speech. No local deficits. PHYSICAL EXAMINATION: VITAL SIGNS: Height of 5 feet 4 inches and weight of 230 pounds. Blood pressure 140/60, heart rate of 70, respiratory rate of 18, and afebrile. HEENT: Pupils are reactive. There is deformity of the face, possible old facial palsy. NECK: No elevation of jugular venous pulsation. Bilateral carotid scar with bilateral carotid bruit. CHEST: Barrel chest with marked decreased lung expansion. There is decreased air entry in the left base. HEART: Normal first and second heart sounds with ejection systolic murmur over the aortic area. ABDOMEN: Obese. EXTREMITIES: No cyanosis. No clubbing. Trace edema. NEUROLOGIC: Awake, alert, and oriented. LABORATORY DATA: Sodium of 137, potassium 4.5, BUN of 13, creatinine 0.82, and glucose of 165. Hemoglobin of 11.7, hematocrit of 37%, white blood cell count of 7000, and platelets of 177. Of note, the CK total is elevated and of note, the bicarb is elevated at 35. EKG showing normal sinus rhythm, left ventricular hypertrophy with strain pattern. Of note, his BNP is only 173. IMPRESSION AND PLAN: 1. Progressive shortness of breath, very advanced, very severe, closable to be left ventricular dysfunction and maybe mild functioning valve. However, BNP does not support that diagnosis since it is only at 173 on admission, the patient was not really on diuretics. 2. Clinically he does have barrel chest, but his pulmonary function test does support severe lung disease. 3. Obesity and sleep apnea 4. Diabetes mellitus. 5. Bilateral carotid endarterectomy. 6. End-organ damage secondary to diabetes. 7. Diabetes mellitus. Cardiac-vital, we would recommend the following; 1. Continuation of ALFREDITO inhibitors. 2. Adding Lasix intravenously. 3. We will try to get good echo, hopefully they can do good study. 4. Consultation with Pulmonary should be done since his BNP is only 173. All this discussed and explained. Differential diagnosis are discussed. Of course, we are going to be on the cautious side and take blood cultures. We will follow the patient's progression with you. Pending on his course further steps to be done. TIME SPEND OF DIRECT PATIENT CARE AN DISCUSSION WITH PATIENT AND DISCUSSION WITH MARY FLORES AND NITIN IS APPROXIMATELY 80 MIN MD NIKOLE Cedeño/LEVY /[id number]
[2018-10-09] MEDS: INSULIN LISPRO 100 UNIT/1 ML 3ML VIAL SQ SCH ×2 (16:59→21:48)
[2018-10-09] MEDS ORDERED: LISINOPRIL 10 MG TAB PO SCH (17:00)
[2018-10-09] MEDS ORDERED: NPH, HUMAN INSULIN ISOPHANE 100 UNIT/1 ML 3ML VIAL SQ SCH (17:00)
[2018-10-09] MEDS: ENOXAPARIN SOD INJ 40 MG/0.4 ML SYR SC SCH (17:07)
[2018-10-09] MEDS: LISINOPRIL 20 MG TAB PO SCH (17:07)
[2018-10-09 20:00] VITALS: BP 145/64
[2018-10-09] MEDS ORDERED: ATORVASTATIN 40 MG TAB PO SCH (21:00)
[2018-10-09] MEDS ORDERED: ATORVASTATIN 20 MG TAB PO SCH ×2 (21:00)
--- NOTE | 2018-10-09 21:20 | NUR ---
RECEIVED REPORT FROM DAY NURSE. PATIENT IS RESTING COMFORTABLY IN BED. BED IS IN LOWEST POSITION AND CALL DUNN IS WITHIN REACH. WILL CONTINUE TO MONITOR PATIENT.
[2018-10-09] MEDS: INSULIN GLARGINE 100 UNITS/ML VIAL SQ SCH (21:49)
[2018-10-10] VITALS (7 sets, daily range): BP systolic 100–138; BP diastolic 50–63
[2018-10-10 05:35] LABS: INR 0.97; PARTIAL THROMBOPLASTIN TIME 31.1 seconds (23.8-35.5); PROTHROMBIN TIME 13.4 seconds (11.9-14.5)
[2018-10-10 05:45] LABS: BASOPHILS % 0.3 % (0.0-1.0); EOSINOPHILS # (AUTO) 0.1 (0.0-0.4); EOSINOPHILS % 1.6 % (0.0-6.0); HEMATOCRIT 37.8 % (38.2-49.6); HEMOGLOBIN 11.8 g/dL (14.0-18.0); LYMPHOCYTES # (AUTO) 1.3 (1.0-3.2); LYMPHOCYTES % 16.4 % (18.0-39.1); MEAN CORPUSCULAR HEMOGLOBIN 29.9 pg (28-32); MEAN CORPUSCULAR HGB CONC 31.2 g/dL (31-35); MEAN CORPUSCULAR VOLUME 95.9 fL (81-99); MONOCYTES # (AUTO) 0.7 (0.2-0.8); MONOCYTES % 8.5 % (4.4-11.3); NEUTROPHILS # (AUTO) 5.8 (2.1-6.9); NEUTROPHILS % 72.8 % (38.7-80.0); PLATELET COUNT 169 x10e3/uL (140-360); RED BLOOD COUNT 3.94 x10e6/uL (4.3-5.7); RED CELL DISTRIBUTION WIDTH 14.2 % (11.7-14.4)
[2018-10-10 05:53] LABS: ALANINE AMINOTRANSFERASE 52 IU/L (0-55); ALBUMIN 3.7 g/dL (3.5-5.0); ALBUMIN/GLOBULIN RATIO 1.3 (0.8-2.0); ALKALINE PHOSPHATASE 71 IU/L (40-150); ANION GAP 10.4 mmol/L (8-16); BLOOD UREA NITROGEN 17 mg/dL (7-26); BUN/CREATININE RATIO 21 (6-25); CALCIUM 10.2 mg/dL (8.4-10.2); CARBON DIOXIDE 31 mmol/L (22-29); CHLORIDE 100 mmol/L (98-107); CHOL/HDL RATIO 3.3 (3.9-4.7); CHOLESTEROL 167 MD/DL (0-199); CREATININE, SERUM 0.82 mg/dL (0.72-1.25); EST GLOMERULAR FILTRATION RATE > 60 ML/MIN (60-); GLUCOSE 129 mg/dL (74-118); HDL CHOLESTEROL 50 MG/DL (40-60); LDL CHOLESTEROL 101 MG/DL (60-130); POTASSIUM 4.4 mmol/L (3.5-5.1); SODIUM 137 mmol/L (136-145); TRIGLYCERIDES 80 MG/DL (0-149)
[2018-10-10 06:14] LABS: THYROID STIMULATING HORMONE 1.681 uIU/mL (0.350-4.940)
--- NOTE | 2018-10-10 06:57 | NUR ---
REPORT GIVEN TO DAY NURSE. PATIENT IS RESTING COMFORTABLY IN BED. BED IS IN LOWEST POSITION AND CALL LIGHT IS WITHIN REACH.
--- NOTE | 2018-10-10 07:00 | NUR ---
received am report from rn. pt is awake sitting in bedside chair, no s/s of distress.
[2018-10-10] MEDS: INSULIN LISPRO 100 UNIT/1 ML 3ML VIAL SQ SCH ×4 (08:00→21:07)
[2018-10-10] MEDS: FUROSEMIDE INJ 10 MG/ML 4 ML VIAL IV SCH (08:21)
[2018-10-10] MEDS: ASPIRIN 81 MG CHEW TAB PO SCH (08:21)
[2018-10-10] MEDS: METOPROLOL TARTRATE 25 MG TAB PO SCH (08:22)
[2018-10-10] MEDS: POTASSIUM CHLORIDE 20 MEQ TAB CR PO SCH (08:22)
[2018-10-10] MEDS: LISINOPRIL 20 MG TAB PO SCH (08:23)
[2018-10-10] MEDS ORDERED: LISINOPRIL 10 MG TAB PO SCH (09:00)
[2018-10-10] MEDS ORDERED: ASPIRIN 81 MG ENTERIC COATED PO SCH (09:00)
--- NOTE | 2018-10-10 09:00 | NUR ---
critical lab received, blood culture positive for gram positive cocci and clusters. called Dr Wheeler and per a consult was put in for infectious disease.
[2018-10-10] MEDS ORDERED: SODIUM CHLORIDE 0.9% 250ML 250 ML ONE (13:28)
[2018-10-10] MEDS: VANCOMYCIN 1GM/NS 250 ML 250 ML IV SCH ×2 (13:28→20:47)
--- NOTE | 2018-10-10 14:33 | Progress Note ---
DATE: 10/10/2018 Medicine Progress Note SUBJECTIVE: The patient is doing well today with no complaints. He was sitting on the edge of the bed with no complaints. He has been using oxygen supplemental. He was also drinking Gatorade which I insisted to him that it has too much sodium in it causing his edema. His blood cultures are positive 1/2 but it seems to be a contaminant, but ID was consulted. PHYSICAL EXAMINATION: VITAL SIGNS: Temperature is 95.9, pulse 87, respiratory rate is 18, blood pressure 111/51, pulse ox is 95% on room air. GENERAL: Not in acute distress. Alert and oriented x3. Cooperative on examination. HEENT: Head is normocephalic and atraumatic. Eyes; pupils are equal, round, and reactive to light bilaterally. Extraocular movements are intact bilaterally. Throat, no evidence of erythema or exudates in the posterior pharynx. Has poor dentition. NECK: Supple. Good range of motion. PULMONARY: Clear to auscultation bilaterally. No wheezing, no rales, no rhonchi, no crackles appreciated. CARDIOVASCULAR: Positive S1, S2. No murmurs, rubs, or gallops appreciated. ABDOMEN: Soft, nondistended, and nontender to palpation. Bowel sounds present. MUSCULOSKELETAL: Strength is 5/5 throughout. No evidence of any muscle deficits on examination. No weakness appreciated. NEUROLOGICAL: Cranial nerves 2 through 12 grossly intact. No evidence of any neurological deficits on exam. SKIN: Intact. Warm to touch. Good cap refill. PSYCHIATRIC: Normal affect and mood. EXTREMITIES: No edema. Good range of motion throughout. LABORATORY DATA: Lab findings show white count 7.9, hemoglobin 11.9, hematocrit is 37, platelets of 169. Coagulations were reviewed and normal. Chemistry reviewed and normal. Urinalysis negative. MICROBIOLOGY: One out of two is positive, gram-positive cocci in clusters. Repeat blood cultures were performed. IMPRESSION: 1. Shortness of breath secondary to pulmonary edema, now improved. 2. History of obstructive sleep apnea. 3. History of coronary artery disease. 4. Hypertension. 5. Type 2 diabetes. 6. Positive 1/2 blood culture, likely contaminant. PLAN: At this time, continue with IV diuretics and cardioprotective meds in which Cardiology is following closely. Pulmonary is following as well. Blood culture 1/2 was positive, I will go ahead and get ID consultation, likely to be a contaminant, repeat blood cultures were performed. Current labs are stable, get repeat labs in the morning as well. I discussed plan of care with nurse and the patient with his present at bedside. MD CLINTON Graham/LEVY /[id number]
--- NOTE | 2018-10-10 16:01 | NUR ---
CM TO BEDSIDE TO DISCUSS IMM LETTER AND PATIENT'S RIGHTS. QUESTIONS ANSWERED AND PATIENT/FAMILY VERBALIZED UNDERSTANDING OF TEACHING. SIGNATURE OBTAINED. COPY TO CHART AND LEFT AT THE BEDSIDE.
[2018-10-10] MEDS: ENOXAPARIN SOD INJ 40 MG/0.4 ML SYR SC SCH (17:10)
--- NOTE | 2018-10-10 18:40 | NUR ---
rounded with retail shift leader nurse, patient aware of change and in no distress. call macias within reach and bed in lowest position.
--- NOTE | 2018-10-10 19:39 | Consultation ---
DATE OF CONSULTATION: 10/10/2018 REASON FOR CONSULTATION: Pneumonia, recommendation of antibiotic. HISTORY OF PRESENT ILLNESS: This patient who is a very pleasant 67-year-old Togolese male with history of atherosclerosis disease, hypercholesteremia, diabetes mellitus, and hypertension. Home medication, he is on aspirin and atorvastatin, Lovenox, furosemide, insulin, metoprolol, and potassium. The patient has been sick for the last three months. Follow up three weeks with shortness of breath, getting progressively worse. No fever, no chills, but he does have cough. The patient went to see his physician who did a chest x-ray and told him to come to emergency room. The patient was admitted on October 08. He was seen by pulmonary and seen by cardiology. I am asked to see him today because he has positive blood cultures. The patient tells me since he came here, he is feeling much better. There is no fever, no chills, no nausea, no vomiting. He is telling me he had no fever or chills when he came here. The patient does have history of morbidly obese. The patient has history of aortic stenosis, underwent a valve replacement in 2013. Comes in with shortness of breath which he has for about 4 weeks as mentioned above. The patient was treated with BiPAP. He was seen by Pulmonary and seen by Cardiology. The patient also has bilateral carotid endarterectomy. In addition, he has a history of hypertension, hypercholesteremia, obesity, and peripheral neuropathy. His blood cultures one set is showing gram-positive cocci out of 2. His labs, white count 6.7, hemoglobin 11, and hematocrit 34. Sodium 137, potassium 4.4, and creatinine 0.82. ALLERGIES: NKDA. FAMILY HISTORY: Hypertension and diabetes. REVIEW OF SYSTEMS: At the present time, HEENT: Negative. PULMONARY: Negative except for what is mentioned above he denies any. : Negative. GI: Negative. SKIN: Negative. JOINTS: Negative. PAST MEDICAL HISTORY: As above. PAST SURGICAL HISTORY: Aortic valve replacement in July 17, 2013, bilateral carotid endarterectomy 2012 and 2013. Cardiac catheterization had minimal plaquing on his coronary hypertension, diabetes mellitus, end-stage disease, sleep apnea, peripheral neuropathy. SOCIAL HISTORY: He is . No smoking, drug abuse, or alcohol abuse. Father at age 72 with diabetes mellitus. MEDICATION LIST: He is currently on Lopressor, aspirin, Lasix, and Lovenox. LABORATORY DATA: Sodium 137, potassium 4.4, and creatinine 0.82. Liver enzyme within normal limit. White count is 6.7 and hemoglobin 11.7 and hematocrit 34. PHYSICAL EXAMINATION: GENERAL: He is currently alert, oriented, does not seem to be in acute distress. VITAL SIGNS: Stable, currently afebrile. HEENT: Not icteric. NECK: Supple. CHEST: Clear bilaterally. CARDIAC: S1, S2. No S3, S4, or murmur. ABDOMEN: Soft. Bowel sounds present. No tenderness. EXTREMITIES: No edema. SKIN: There is no rash. IMPRESSION: Bacteremia. He is asymptomatic. However, he does have history of aortic valve replacement. I would recommend to recheck blood cultures x2. Obtain sedimentation rate and C-reactive protein. Echocardiogram after we do all that, we will start the patient on vancomycin and then reassess depending on what type of bacteria and the repeat blood cultures, and clinically he is only feeling better, so it could be all fluid overload. Discussed with nursing team. We will follow with you. Further recommendations to follow. MD PIPO Haddad/LEVY /[id number]
[2018-10-10] MEDS: ATORVASTATIN 40 MG TAB PO SCH (20:47)
[2018-10-10] MEDS: INSULIN GLARGINE 100 UNITS/ML VIAL SQ SCH (21:07)
[2018-10-11] VITALS (9 sets, daily range): BP systolic 122–137; BP diastolic 56–70
[2018-10-11 05:32] LABS: BASOPHILS % 0.3 % (0.0-1.0); EOSINOPHILS # (AUTO) 0.2 (0.0-0.4); HEMATOCRIT 38.1 % (38.2-49.6); HEMOGLOBIN 12.2 g/dL (14.0-18.0); LYMPHOCYTES # (AUTO) 1.2 (1.0-3.2); LYMPHOCYTES % 19.1 % (18.0-39.1); MEAN CORPUSCULAR VOLUME 93.8 fL (81-99); MONOCYTES # (AUTO) 0.5 (0.2-0.8); MONOCYTES % 8.4 % (4.4-11.3); NEUTROPHILS # (AUTO) 4.3 (2.1-6.9); NEUTROPHILS % 68.7 % (38.7-80.0); PLATELET COUNT 169 x10e3/uL (140-360); RED BLOOD COUNT 4.06 x10e6/uL (4.3-5.7); RED CELL DISTRIBUTION WIDTH 14.3 % (11.7-14.4)
[2018-10-11 05:51] LABS: ANION GAP 9.6 mmol/L (8-16); BLOOD UREA NITROGEN 20 mg/dL (7-26); BUN/CREATININE RATIO 22 (6-25); CARBON DIOXIDE 31 mmol/L (22-29); CHLORIDE 103 mmol/L (98-107); CREATININE, SERUM 0.91 mg/dL (0.72-1.25); EST GLOMERULAR FILTRATION RATE > 60 ML/MIN (60-); GLUCOSE 153 mg/dL (74-118); POTASSIUM 4.6 mmol/L (3.5-5.1); SODIUM 139 mmol/L (136-145)
[2018-10-11] MEDS: INSULIN LISPRO 100 UNIT/1 ML 3ML VIAL SQ SCH ×4 (08:15→21:40)
[2018-10-11] MEDS: FUROSEMIDE INJ 10 MG/ML 4 ML VIAL IV SCH (08:23)
[2018-10-11] MEDS: ASPIRIN 81 MG CHEW TAB PO SCH (08:23)
[2018-10-11] MEDS: METOPROLOL TARTRATE 25 MG TAB PO SCH (08:23)
[2018-10-11] MEDS: POTASSIUM CHLORIDE 20 MEQ TAB CR PO SCH (08:23)
[2018-10-11] MEDS: LISINOPRIL 20 MG TAB PO SCH (08:24)
[2018-10-11] MEDS: VANCOMYCIN 1GM/NS 250 ML 250 ML IV SCH ×2 (09:25→21:41)
[2018-10-11] MEDS: ENOXAPARIN SOD INJ 40 MG/0.4 ML SYR SC SCH (16:30)
--- NOTE | 2018-10-11 18:43 | Progress Note ---
DATE: 10/11/2018 Medicine Progress Note SUBJECTIVE: The patient is doing much better today with no complaints. He is sitting in the edge of the bed, eating his lunch. He had no overnight events. His white count is normal. He does not have a fever. He is afebrile. It seems that his blood cultures were likely to be contaminant. Once cleared by ID, he can go home. OBJECTIVE: VITAL SIGNS: Temperature 96.4, pulse 68, respirations 18, blood pressure 123/56, pulse ox 97% on room air. GENERAL: Not in acute distress. Alert and oriented x3. Cooperative on examination. HEENT: Head is normocephalic and atraumatic. Eyes; pupils are equal, round, and reactive to light bilaterally. Extraocular movements are intact bilaterally. Throat, no evidence of erythema or exudates in the posterior pharynx. Has poor dentition. NECK: Supple. Good range of motion. PULMONARY: Clear to auscultation bilaterally. No wheezing, no rales, no rhonchi, no crackles appreciated. CARDIOVASCULAR: Positive S1, S2. No murmurs, rubs, or gallops appreciated. ABDOMEN: Soft, nondistended, and nontender to palpation. Bowel sounds present. MUSCULOSKELETAL: Strength is 5/5 throughout. No evidence of any muscle deficits on examination. No weakness appreciated. NEUROLOGICAL: Cranial nerves 2 through 12 grossly intact. No evidence of any neurological deficits on exam. SKIN: Intact. Warm to touch. Good cap refill. PSYCHIATRIC: Normal affect and mood. EXTREMITIES: No edema. Good range of motion throughout. LABORATORY DATA: Lab findings show white count 6.2, hemoglobin 12, hematocrit of 38, platelets of 169. His chemistry; sodium 139, potassium 4.6, chloride 103, bicarb 31, BUN 20, creatinine is 0.91, glucose 153, calcium is 10. Repeat blood cultures were found to be negative. There is also another repeat performed yesterday. The initial 2/2 blood cultures were found to be positive, which shows coag-negative staph, so waiting on the final recommendations by ID. IMPRESSION: 1. Shortness of breath secondary to pulmonary edema, resolved. 2. History of obstructive sleep apnea. 3. History of coronary artery disease. 4. Hypertension. 5. Type 2 diabetes. PLAN: Positive blood culture, bacteremia likely to be contaminant. At this time, continue with diuretics. Cardioprotective medications per Cardiology. Pulmonary is following as well. In relation to the bacteremia, likely to be a contaminant. ID is following. Continue with IV antibiotics. Once cleared by ID, the patient can be discharged home. MD CLINTON Graham/LEVY /[id number]
--- NOTE | 2018-10-11 18:52 | NUR ---
walking rounds made with longwall shearer operator nurse, patient alert and oriented sitting in bedside chair. call macias within reach and bed in lowest position.
--- NOTE | 2018-10-11 21:27 | NUR ---
Paged for vancomycin trough result. waiting for response.
[2018-10-11] MEDS: ATORVASTATIN 40 MG TAB PO SCH (21:34)
[2018-10-11] MEDS: INSULIN GLARGINE 100 UNITS/ML VIAL SQ SCH (21:40)
[2018-10-12] VITALS (8 sets, daily range): BP systolic 126–156; BP diastolic 58–68
--- NOTE | 2018-10-12 07:10 | Diagnostic Imaging Report ---
EXAMINATION: PA and lateral views of the chest. COMPARISON: None CLINICAL HISTORY: Congestive heart failure DISCUSSION: Lines/tubes: Sternotomy wires. Lungs: Central venous congestion. No edema. Pleura: No significant pleural effusion or pneumothorax. Heart and mediastinum: Prominent heart size. Bones and soft tissues: No acute bony abnormalities. IMPRESSION: No acute cardiopulmonary abnormalities. Signed by: Dr. Sonny Ratliff M.D. on 10/12/2018 7:07 AM
[2018-10-12] MEDS: INSULIN LISPRO 100 UNIT/1 ML 3ML VIAL SQ SCH ×4 (07:30→21:28)
[2018-10-12] MEDS: ASPIRIN 81 MG CHEW TAB PO SCH (08:30)
[2018-10-12] MEDS: LISINOPRIL 20 MG TAB PO SCH (08:30)
[2018-10-12] MEDS: POTASSIUM CHLORIDE 20 MEQ TAB CR PO SCH (08:30)
[2018-10-12] MEDS: VANCOMYCIN 1GM/NS 250 ML 250 ML IV SCH ×2 (08:30→21:09)
[2018-10-12] MEDS: FUROSEMIDE INJ 10 MG/ML 4 ML VIAL IV SCH (08:30)
[2018-10-12] MEDS: METOPROLOL TARTRATE 25 MG TAB PO SCH (08:30)
[2018-10-12] MEDS: ENOXAPARIN SOD INJ 40 MG/0.4 ML SYR SC SCH (16:17)
--- NOTE | 2018-10-12 16:32 | Progress Note ---
DATE: 10/12/2018 Medicine Progress Note SUBJECTIVE: The patient is actually doing very well today with no complaints. Blood cultures repeat were found to be negative. I discussed this with ID. They recommend holding the patient one more additional day to monitor the patient very closely. OBJECTIVE: VITAL SIGNS: Temperature is 96.8, pulse 70, respiratory rate is 22, blood pressure 133/61, and pulse ox 96% on room air. GENERAL: No acute distress, alert and oriented x3. Cooperative on examination. HEENT: Head is normocephalic, atraumatic. Eyes; pupils are equal, round, and reactive to light bilaterally. Extraocular movements are intact bilaterally. NECK: Supple. Good range of motion. THROAT: No evidence of any erythema or exudates in the posterior pharynx. Has poor dentition. PULMONARY: Clear to auscultation bilaterally. No wheezing, no rales, no rhonchi, no crackles appreciated. CARDIOVASCULAR: Positive S1, S2. No murmurs, rubs, or gallops appreciated. ABDOMEN: Soft, nondistended, and nontender to palpation. Bowel sounds present. MUSCULOSKELETAL: Strength is 5/5 throughout. No evidence of any muscle deficits on examination. No weakness appreciated. NEUROLOGICAL: Cranial nerves II through XII grossly intact. LABORATORY DATA: Labs show white count of 6.2, hemoglobin 12, hematocrit of 38, platelets of 169. Chemistry reviewed and stable. Microbiology; initial blood cultures 2/2 were found likely to be contaminated with coag-negative staph. Repeat other blood cultures 4/4 so far no growth. IMPRESSION: 1. Shortness of breath secondary to pulmonary edema, resolved. 2. History of obstructive sleep apnea. 3. Coronary artery disease. 4. Hypertension. 5. Type 2 diabetes. PLAN: Blood cultures were positive, like to be contaminant. Repeat blood cultures found to be no growth to date. Discussed with ID. Would like to monitor the patient overnight and then likely discharge tomorrow. MD CLINTON Graham/MODL /[id number]
--- NOTE | 2018-10-12 18:56 | NUR ---
rounded with overnight houseperson nurse, patient aware of change and in no distress. call macias within reach and bed in lowest position
[2018-10-12] MEDS: ATORVASTATIN 40 MG TAB PO SCH (21:09)
[2018-10-12] MEDS: INSULIN GLARGINE 100 UNITS/ML VIAL SQ SCH (21:27)
[2018-10-13 05:46] LABS: BASOPHILS % 0.4 % (0.0-1.0); EOSINOPHILS # (AUTO) 0.2 (0.0-0.4); EOSINOPHILS % 3.1 % (0.0-6.0); HEMATOCRIT 36.1 % (38.2-49.6); HEMOGLOBIN 11.7 g/dL (14.0-18.0); LYMPHOCYTES # (AUTO) 1.5 (1.0-3.2); LYMPHOCYTES % 27.4 % (18.0-39.1); MEAN CORPUSCULAR HEMOGLOBIN 30.2 pg (28-32); MEAN CORPUSCULAR HGB CONC 32.4 g/dL (31-35); MEAN CORPUSCULAR VOLUME 93.3 fL (81-99); MONOCYTES # (AUTO) 0.5 (0.2-0.8); MONOCYTES % 9.2 % (4.4-11.3); NEUTROPHILS # (AUTO) 3.2 (2.1-6.9); NEUTROPHILS % 59.5 % (38.7-80.0); PLATELET COUNT 162 x10e3/uL (140-360); RED BLOOD COUNT 3.87 x10e6/uL (4.3-5.7)
[2018-10-13 06:02] LABS: ALANINE AMINOTRANSFERASE 47 IU/L (0-55); ALBUMIN 3.6 g/dL (3.5-5.0); ALBUMIN/GLOBULIN RATIO 1.2 (0.8-2.0); ALKALINE PHOSPHATASE 71 IU/L (40-150); ANION GAP 11.3 mmol/L (8-16); BLOOD UREA NITROGEN 23 mg/dL (7-26); BUN/CREATININE RATIO 24 (6-25); CALCIUM 9.7 mg/dL (8.4-10.2); CARBON DIOXIDE 30 mmol/L (22-29); CHLORIDE 103 mmol/L (98-107); CREATININE, SERUM 0.94 mg/dL (0.72-1.25); EST GLOMERULAR FILTRATION RATE > 60 ML/MIN (60-); GLUCOSE 313 mg/dL (74-118); POTASSIUM 4.3 mmol/L (3.5-5.1); SODIUM 140 mmol/L (136-145)
[2018-10-13] MEDS: INSULIN LISPRO 100 UNIT/1 ML 3ML VIAL SQ SCH ×2 (08:30→12:30)
[2018-10-13 08:33] VITALS: BP 150/65
--- NOTE | 2018-10-13 09:00 | NUR ---
PT SITTING IN BEDSIDE CHAIR, VOICES NO NEEDS AT THIS TIME, CALL LIGHT WITHIN REACH
[2018-10-13] MEDS: VANCOMYCIN 1GM/NS 250 ML 250 ML IV SCH (10:00)
[2018-10-13] MEDS: LISINOPRIL 20 MG TAB PO SCH (10:00)
[2018-10-13] MEDS: METOPROLOL TARTRATE 25 MG TAB PO SCH (10:00)
[2018-10-13] MEDS: POTASSIUM CHLORIDE 20 MEQ TAB CR PO SCH (10:00)
[2018-10-13] MEDS: ASPIRIN 81 MG CHEW TAB PO SCH (10:00)
[2018-10-13] MEDS: FUROSEMIDE INJ 10 MG/ML 4 ML VIAL IV SCH (10:00)
[2018-10-13 10:49] VITALS: BP 150/65
--- NOTE | 2018-10-13 11:11 | NUR ---
EDUCATED ABOUT IMM, SIGNED, FILED IN CHART, WITH COPY LEFT WITH FAMILY AT BEDSIDE.
[2018-10-13 13:40] VITALS: BP 120/58
--- NOTE | 2018-10-13 14:16 | NUR ---
MD TAVERAS INTO SEE PT, DISCUSSED DISCHARGE INSTRUCTIONS
[2018-10-13] MEDS ORDERED: FUROSEMIDE40 MG PO (14:21)
[2018-10-13] MEDS ORDERED: ALDACTONE25 MG PO (14:22)
--- NOTE | 2018-10-13 16:55 | NUR ---
REVIEWED DISCHARGE INSTRUCTIONS WITH PT AND FAMILY, VERBALIZED UNDERSTANDING, PT AMBULATED OFF UNIT WITH STEADY GAIT FOR DISCHARGE, NO CHANGE IN CONDITION, PCT AT SIDE
--- NOTE | 2018-10-14 03:28 | Discharge Summary ---
FINAL DISCHARGE DIAGNOSES: 1. Acute exacerbation of congestive heart failure with diastolic dysfunction. 2. Shortness of breath secondary to acute exacerbation of congestive heart failure with diastolic dysfunction. 3. History of obstructive sleep apnea. 4. Coronary artery disease. 5. Hypertension. 6. Type 2 diabetes. CONSULTANTS: Cardiology, Infectious Disease, Pulmonary. PHYSICAL EXAMINATION: VITAL SIGNS: Temperature 97.5, pulse is 64, respiratory rate 20, blood pressure 120/58, pulse ox 98% on room air. LABORATORY FINDINGS: Show white count of 5.4, hemoglobin of 9.7, hematocrit 36, platelets of 162. Chemistry; sodium 140, potassium 4.3, chloride 103, bicarb 30, anion gap of 11, BUN is 23, creatinine is 0.94, and glucose is 226. LFTs were normal. Albumin 3.6. TSH 1.6. Urinalysis negative. Stool occult blood negative. MICROBIOLOGY: Blood cultures initially 2/2 show coagulase-negative Staphylococcus. Repeat blood cultures x4 found to be negative, these all likely to be contaminant. IMAGING STUDIES: Chest x-ray is negative. HOSPITAL COURSE: This is a 67-year-old male, who came into the ED with complaints of shortness of breath with lower extremity edema. The patient was treated for underlying acute exacerbation of CHF. The patient has known diastolic dysfunction. Cardiology was consulted. The patient was on IV diuretics with much improvement. He also has a history of obstructive sleep apnea due to shortness of breath, requiring Pulmonary consultation. Pulmonary recommends outpatient sleep study. The patient was found to have 2/2 blood cultures significant for coagulase-negative Staph. Repeat blood cultures x4 found to be negative. ID was consulted and recommended no further intervention. The patient was cleared for discharge by all consultants. On the day of discharge, vital signs were stable, labs being stable. The patient was seen, evaluated, and examined thoroughly on the day of discharge. No other complaints. The patient verbalized understanding and agrees to plan of care. Follow up as an outpatient with PCP in 1 week, leather heel breaster in 2 weeks' time. Must follow up with Pulmonary in 2 weeks' time for sleep study. MEDICATIONS: See med reconciliation form. DISPOSITION: Home. CONDITION: Stable. DIET: Heart healthy. In the event of any worsening symptoms, the patient was advised to come to the ED for further evaluation. Discharge summary took greater than 35 minutes. MD CLINTON Graham/LEVY /[id number]
== END 2018-10-13 16:54 | disposition home or self-care (01) | DRG 293 ==
LOC: ER 16:07 → ERHOLD 20:38 → IMCU 21:35 → MED/SURG 10-10 12:24 → OBSVTOIN 10-10 14:36
PROVIDERS: ADMIT Internal Medicine; ATTEND Internal Medicine
DX: I11.0 Hypertensive heart disease with heart failure (principal); I50.33 Acute on chronic diastolic (congestive) heart failure; I25.10 Atherosclerotic heart disease of native coronary artery without angina pectoris; E78.00 Pure hypercholesterolemia, unspecified; E11.40 Type 2 diabetes mellitus with diabetic neuropathy, unspecified; E66.01 Morbid (severe) obesity due to excess calories; G47.33 Obstructive sleep apnea (adult) (pediatric); Z68.38 Body mass index [BMI] 38.0-38.9, adult; Z79.82 Long term (current) use of aspirin; Z79.4 Long term (current) use of insulin; Z91.14 Patient's other noncompliance with medication regimen; Z91.19 Patient's noncompliance with other medical treatment and regimen
CPT/HCPCS: 36415; 36600; 71045; 71046; 80048; 80053; 80061; 80202; 81001; 82270; 82550; 82553; 82805; 82948; 83036; 83605; 83880; 84443; 84484; 85025; 85610; 85651; 85730; 86140; 87040; 87071; 87205; 93005; 93306; 94660; 99285; G0378; J1650; J1815; J1940; J3370; J7050